=== PATIENT | male | born 1995 | race African-American/Black ===

== ENCOUNTER 2018-03-24 23:32 | Emergency (ER) | payer MEDICAID, OTHER ==
[2018-03-25] MEDS ORDERED: HYDROCODONE/ACETAMINOPHEN 5-325 MG TABLET PO ONE (00:17)
[2018-03-25] MEDS ORDERED: CLINDAMYCIN HCL 150 MG CAPSULE PO ONE (00:17)
--- NOTE | 2018-03-25 01:00 | ER Document Report ---
ED General - General Chief Complaint: Toe Injury Stated Complaint: TOE INJURY Time Seen by Provider: 03/25/18 00:09 Mode of Arrival: Ambulatory Information source: Patient, Relative TRAVEL OUTSIDE OF THE [place] IN LAST 30 DAYS: No - HPI Notes: Patient is otherwise healthy 22-year-old male presents to the emergency department with report of right great toe redness and swelling along the nail bed. The patient has no history of diabetes and denies any trauma to the toe. He reports no fever or chills or chest pain or difficulty breathing. He denies any other skin rash or lesions. He reports no history of MRSA. Past Medical History - General Information source: Patient - Social History Smoking Status: Never Smoker Frequency of alcohol use: None Drug Abuse: None Lives with: Family Family History: None Review of Systems - Review of Systems Notes: REVIEW OF SYSTEMS: CONSTITUTIONAL : Denies fever, chills, or sweats. Denies recent illness. CARDIOVASCULAR: Denies ankle edema. SKIN: Swelling with lesion to the right great toenail and toe. No other rash. LYMPHATIC: Denies swollen, enlarged glands. Endocrine : patient denies polydipsia and polyuria. ALL OTHER SYSTEMS REVIEWED AND NEGATIVE. Dictation was performed using [employer] voice recognition software but she is so engaging to Physical Exam - Notes Notes: Examination of the patient's right lower extremity shows a paronychia on the medial aspect of the great toe with mild swelling just of the dorsal aspect of the toe distally. There is no evidence for a felon or tenosynovitis. There is a full range of motion through the toe and foot. There is no proximal erythema or adenopathy noted. Distally, the patient has good sensation and capillary refill. Course - Re-evaluation Re-evalutation: 03/25/18 01:18 Following discussion of risks, alternatives, and benefits, the patient had the right great toe area cleaned with an alcohol wipe then the medial aspect paronychia was incised with a 18-gauge needle along the superficial aspect and purulent material without odor was obtained which was cultured. The wound was then cleaned again with an alcohol wipe and very gently debrided with good result. The wound stayed open and did not require a packing to be placed. 03/25/18 01:19 No evidence for tenosynovitis or systemic infection. Patient is nondiabetic. Discharge - Discharge Clinical Impression: Paronychia Condition: Stable Disposition: HOME, SELF-CARE Instructions: Paronychia ([facility]), Family Physicians / Practices Additional Instructions: Soak the great toe in warm salt water for 20 minutes tonight, then at least 20 minutes daily for the next week. Return to the emergency department in case of severe pain, severe swelling, or fever. Apply antibiotic ointment to the wound daily and change the dressing and your socks very regularly. Prescriptions: Clindamycin HCl [Cleocin 300 mg Capsule] 300 mg PO Q6 #30 capsule
[2018-03-25 02:37] VITALS: BP 120/72
== END 2018-03-25 01:36 | disposition home or self-care (01) ==
LOC: ER 23:32
DX: L03.031 Cellulitis of right toe (principal)
CPT/HCPCS: 87070; 87075; 87205; 99283